=== PATIENT | female | born 1980 | race Caucasian/White ===

== ENCOUNTER → 2018-01-13 | Outpatient (CLI) | payer OTHER ==
[~2018-01-13] MED LIST: CARISOPRODOL 3350 MG PO; CEFPODOXIME PR200 M1 PO; DOXEPIN 10 MG C10 MG PO; DOXEPIN 25 MG C25 M1 PO; LISINOPRIL-HCT1 EAC2 PO; MEDROLDOSEPACK PO; MOBIC15 MG PO; MUCINEX600 MG PO; NEURONTIN 300300 M1 PO; ONDANSETRON HCL4 M2 PO; OXYCODONE-APAP1 EAC4 PO; PROTONIX40 M1 PO; TESSALON PERLE100 MG PO; XANAX 0.5 MG0.5 MG PO; ZYRTEC10 M4 PO
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
== END ==
LOC: M.PC 02:49
DX: M25.512 Pain in left shoulder (principal); G89.29 Other chronic pain; K21.9 Gastro-esophageal reflux disease without esophagitis; I10 Essential (primary) hypertension; F41.9 Anxiety disorder, unspecified; V89.2XXA Person injured in unspecified motor-vehicle accident, traffic, initial encounter; Z87.11 Personal history of peptic ulcer disease

== ENCOUNTER → 2018-02-10 | Outpatient (CLI) | payer OTHER ==
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
== END ==
LOC: M.PC 03:47
DX: M25.512 Pain in left shoulder (principal); I10 Essential (primary) hypertension; K21.9 Gastro-esophageal reflux disease without esophagitis; R45.7 State of emotional shock and stress, unspecified; V89.2XXA Person injured in unspecified motor-vehicle accident, traffic, initial encounter; Z87.11 Personal history of peptic ulcer disease

== ENCOUNTER → 2018-03-03 | Outpatient (CLI) | payer OTHER ==
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
== END ==
LOC: M.PC 01:41
DX: M25.512 Pain in left shoulder (principal); M54.2 Cervicalgia; G89.29 Other chronic pain; I10 Essential (primary) hypertension; K21.9 Gastro-esophageal reflux disease without esophagitis; Z79.899 Other long term (current) drug therapy; Z87.11 Personal history of peptic ulcer disease

== ENCOUNTER → 2018-03-31 | Outpatient (CLI) | payer OTHER ==
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
== END ==
LOC: M.PC 11:40
DX: K21.9 Gastro-esophageal reflux disease without esophagitis (principal); I10 Essential (primary) hypertension; Z79.899 Other long term (current) drug therapy; Z87.11 Personal history of peptic ulcer disease

== ENCOUNTER → 2018-06-07 | Outpatient (CLI) | payer OTHER ==
[~2018-06-07] MED LIST changes: +MEDROXYPROGESTERONE; +[UNRECOGNIZED DRUG - OTHER]
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
== END ==
LOC: M.PC 05-26 10:50
DX: M25.512 Pain in left shoulder (principal); G89.29 Other chronic pain; M54.2 Cervicalgia; I10 Essential (primary) hypertension; K21.9 Gastro-esophageal reflux disease without esophagitis; R45.7 State of emotional shock and stress, unspecified; V89.2XXA Person injured in unspecified motor-vehicle accident, traffic, initial encounter; Z87.11 Personal history of peptic ulcer disease